=== PATIENT | female | born 1945 | race Caucasian/White ===

== ENCOUNTER 2018-02-26 13:20 | Outpatient (CLI) | payer MEDICARE | END 2018-02-26 13:21 | disposition home or self-care (01) | LOC: BICMAMMO 13:20 | PROVIDERS: ATTEND Internal Medicine | DX: E28.39 Other primary ovarian failure (principal); E78.5 Hyperlipidemia, unspecified; M85.89 Other specified disorders of bone density and structure, multiple sites | CPT/HCPCS: 77080 ==

== ENCOUNTER 2018-08-30 08:24 | Outpatient (CLI) | payer MEDICARE | END 2018-08-30 08:25 | disposition home or self-care (01) | LOC: BICMAMMO 08:24 | PROVIDERS: ATTEND Internal Medicine | DX: Z12.31 Encounter for screening mammogram for malignant neoplasm of breast (principal); R92.1 Mammographic calcification found on diagnostic imaging of breast | CPT/HCPCS: 77063; 77067 ==

== ENCOUNTER 2022-02-24 10:10 | Outpatient (CLI) | payer MEDICARE ==
[2022-02-24 12:03] LABS: #Monocytes 0.3 10x3/uL (0.0-1.1); #Neutrophils 10.6 10x3/uL (1.5-8.4); %Basophils 0.3 % (0.0-2.0); %Eosinophils 0.3 % (0.0-6.0); %Monocytes 2.7 % (0.0-10.0); Hemoglobin 7.8 g/dL (12.0-15.5); Mean Corpuscular HGB CONC 28.6 g/dL (32.0-36.0); Mean Corpuscular Hemoglobin 21.3 pg (27.0-33.0); Mean Corpuscular Volume 74.4 fl (81.6-98.3); Mean Platelet Volume 9.8 fl (7.4-10.4); Platelet Count 493 10x3/uL (150-450); RBC Distribution Width 17.5 % (11.5-14.5); Red Blood Cell (RBC) Count 3.67 10x6/uL (3.90-5.03); White Blood Cell (WBC) Count 12.1 10x3/uL (3.5-10.5)
[2022-02-24 12:27] LABS: Anion Gap 19 mmol/L (10-20); BUN (Urea Nitrogen) 11 mg/dL (9.8-20.1); Calc. Creatinine Clearance 0 mL/min (70-130); Calcium 8.8 mg/dL (7.8-10.44); Carbon Dioxide 21 mmol/L (23-31); Chloride 98 mmol/L (98-107); Estimated GFR 64; Glucose 92 mg/dL (83-110); Potassium 4.1 mmol/L (3.5-5.1); Sodium 134 mmol/L (136-145)
[2022-02-24 12:28] LABS: Anisocytosis SLIGHT = 6-15 cells (100X) (0-5/hpf); Hypochromia SLIGHT = 6-15 cells (100X) (0-5/hpf); Microcytosis SLIGHT = 6-15 cells (100X) (0-5/hpf); Platelet Morphology Comment Appears Increased
[2022-02-24 12:29] LABS: Spherocytes SLIGHT = 1-5 cells (100X) (None Seen)
[2022-02-24 16:51] LABS: Hemoglobin A1c 5.4 % (4.0-6.0)
== END 2022-02-24 10:11 | disposition home or self-care (01) ==
LOC: LABBT 10:10
PROVIDERS: ATTEND Surgery
DX: Z01.818 Encounter for other preprocedural examination (principal); C18.9 Malignant neoplasm of colon, unspecified; Z20.822 Contact with and (suspected) exposure to COVID-19
CPT/HCPCS: 80048; 83036; 85025; 87811; 93005; 93010

== ENCOUNTER 2022-02-28 12:07 | Inpatient (IN) | payer MEDICARE ==
[2022-02-28] MEDS ORDERED: HYDROmorphone 2 MG/ML VIAL ONE (16:04)
[2022-02-28] MEDS ORDERED: fentaNYL Citrate/PF 100 MCG/2 ML SYRINGE ONE (16:04)
[2022-02-28] MEDS ORDERED: Phenylephrine 10 MG/ML VIAL ONE ×2 (16:05→16:19)
[2022-02-28] MEDS ORDERED: Sodium Chloride 0.9% 100 ML ONE (16:12)
[2022-02-28] MEDS ORDERED: cefOXitin 2 GM VIAL ONE (16:12)
[2022-02-28] MEDS ORDERED: Rocuronium Bromide 10 MG/ML (10ML VIAL) ONE (16:19)
[2022-02-28] MEDS ORDERED: PROPOFOL 200 MG/20 ML VIAL ONE (16:19)
[2022-02-28] MEDS ORDERED: Ondansetron PF 4 MG/2 ML Vial ONE (16:19)
[2022-02-28] MEDS ORDERED: Vecuronium 10 MG VIAL ONE (16:19)
[2022-02-28] MEDS ORDERED: Dexamethasone 20 MG/5 ML VIAL ONE (16:19)
[2022-02-28] MEDS ORDERED: SUGAMMADEX SODIUM 200 MG/2 ML VIAL ONE (17:41)
[2022-02-28] MEDS ORDERED: Promethazine HCl 25 MG/ML VIAL IM PRN (18:21)
[2022-02-28] MEDS ORDERED: hydrALAZINE 20 MG/ML VIAL SLOW IVP PRN (18:21)
[2022-02-28] MEDS ORDERED: Loratadine 10 MG TAB PO PRN (18:21)
[2022-02-28] MEDS ORDERED: Fentanyl 100 MCG/2 ML VIAL ONE ×2 (18:34→19:10)
[2022-02-28] MEDS ORDERED: Naloxone HCl 0.4 mg/ml Vial IV PRN (18:45)
[2022-02-28] MEDS ORDERED: Morphine Sulfate 100 MG in Dextrose 5% in Water 98 ML IV SCH (18:45)
[2022-02-28] MEDS ORDERED: Labetalol HCl 100 MG/20 ML VIAL ONE (19:17)
[2022-02-28] MEDS: D5 1/2 NS w/20 mEq KCL 1,000 ML IV SCH (21:51)
[2022-02-28 23:59] VITALS: BMI 18.6
[2022-03-01] MEDS: cefOXitin Sodium 1 GM in Sodium Chloride 0.9% 100 ML IVPB SCH ×2 (01:00→09:46)
[2022-03-01 06:07] LABS: #Lymphocytes 0.7 thou/uL (1.20-3.40); #Monocytes 0.5 thou/uL (0.11-0.59); #Neutrophils 10.6 thou/uL (1.40-6.50); %Basophils 0.1 % (0.0-1.0); %Eosinophils 0.1 % (0.0-10.0); %Lymphocytes 5.9 % (21.0-51.0); %Monocytes 4.1 % (0.0-10.0); %Neutrophils 89.9 % (42.0-75.0); Mean Corpuscular Hemoglobin 25.5 pg (27.0-31.0); Mean Corpuscular Volume 82.3 fL (78.0-98.0); Platelet Count 281 thou/uL (130-400); RBC Distribution Width 16.8 % (11.5-14.5); Red Blood Cell (RBC) Count 3.91 mill/uL (4.20-5.40); White Blood Cell (WBC) Count 11.8 thou/uL (4.8-10.8)
[2022-03-01 06:22] LABS: Anion Gap 15 mmol/L (10-20); BUN (Urea Nitrogen) 15 mg/dL (9.8-20.1); Calc. Creatinine Clearance 28 mL/min (70-130); Carbon Dioxide 22 mmol/L (23-31); Chloride 101 mmol/L (98-107); Estimated GFR 36; Glucose 183 mg/dL (83-110); Potassium 4.3 mmol/L (3.5-5.1); Sodium 134 mmol/L (136-145)
[2022-03-01] MEDS ORDERED: Enoxaparin Sodium 40 MG/0.4 ML SYRINGE SC SCH (09:00)
[2022-03-01] MEDS: D5 1/2 NS w/20 mEq KCL 1,000 ML IV SCH ×3 (09:46→21:49)
[2022-03-01] MEDS: Famotidine 20 MG TAB PO SCH (09:48)
[2022-03-01] MEDS: Famotidine/PF 20 mg/2ml Vial SLOW IVP SCH (09:48)
[2022-03-01] MEDS ORDERED: Fentanyl 20 mcg/ml (100 ml CADD) IV PRN (12:08)
[2022-03-01] MEDS ORDERED: Sodium Chloride 0.9% 1,000 ML IV SCH ×2 (12:15→19:30)
[2022-03-01] MEDS ORDERED: fentaNYL Citrate/PF 2,000 MCG in Sodium Chloride 0.9% 60 ML IV PRN (17:57)
[2022-03-02] MEDS: D5 1/2 NS w/20 mEq KCL 1,000 ML IV SCH ×4 (03:34→23:17)
[2022-03-02 07:28] LABS: Anion Gap 14 mmol/L (10-20); BUN (Urea Nitrogen) 14 mg/dL (9.8-20.1); Calc. Creatinine Clearance 53 mL/min (70-130); Calcium 7.9 mg/dL (7.8-10.44); Carbon Dioxide 15 mmol/L (23-31); Chloride 104 mmol/L (98-107); Estimated GFR 77; Glucose 112 mg/dL (83-110); Potassium 4.9 mmol/L (3.5-5.1); Sodium 129 mmol/L (136-145)
[2022-03-02 07:31] LABS: #Basophils 0.1 thou/uL (0.0-0.2); #Lymphocytes 0.7 thou/uL (1.20-3.40); #Monocytes 0.4 thou/uL (0.11-0.59); #Neutrophils 14.6 thou/uL (1.40-6.50); %Basophils 0.4 % (0.0-1.0); %Eosinophils 0.1 % (0.0-10.0); %Lymphocytes 4.3 % (21.0-51.0); %Monocytes 2.6 % (0.0-10.0); %Neutrophils 92.6 % (42.0-75.0); Hemoglobin 7.6 g/dL (12.0-16.0); Hypochromia SLIGHT = 6-15 cells (100X) (0-5/hpf); MDiff Complete? YES; Mean Corpuscular HGB CONC 29.8 g/dL (32.0-36.0); Mean Corpuscular Hemoglobin 25.5 pg (27.0-31.0); Mean Corpuscular Volume 85.4 fL (78.0-98.0); Mean Platelet Volume 8.8 fL (7.4-10.4); Platelet Count 238 thou/uL (130-400); Platelet Morphology Comment Appears Adequate; Polychromasia SLIGHT = 2-3 cells (100X) (0-2/hpf); RBC Distribution Width 17.2 % (11.5-14.5); Red Blood Cell (RBC) Count 2.98 mill/uL (4.20-5.40); White Blood Cell (WBC) Count 15.7 thou/uL (4.8-10.8)
[2022-03-02] MEDS ORDERED: Enoxaparin Sodium 30 MG/0.3 ML SYRINGE SC SCH (09:00)
[2022-03-02] MEDS ORDERED: Enoxaparin Sodium 40 MG/0.4 ML SYRINGE SC SCH (09:45)
[2022-03-02] MEDS: Famotidine/PF 20 mg/2ml Vial SLOW IVP SCH (09:46)
[2022-03-02] MEDS: Famotidine 20 MG TAB PO SCH (09:47)
[2022-03-02] MEDS: Ondansetron PF 4 MG/2 ML Vial IVP PRN (23:16)
[2022-03-03] MEDS: Ondansetron PF 4 MG/2 ML Vial IVP PRN (04:59)
[2022-03-03 07:41] LABS: Hemoglobin 10.3 g/dL (12.0-16.0); Mean Corpuscular HGB CONC 30.9 g/dL (32.0-36.0); Mean Corpuscular Hemoglobin 26.1 pg (27.0-31.0); Mean Corpuscular Volume 84.2 fL (78.0-98.0); Mean Platelet Volume 8.5 fL (7.4-10.4); Platelet Count 295 thou/uL (130-400); RBC Distribution Width 16.4 % (11.5-14.5); Red Blood Cell (RBC) Count 3.94 mill/uL (4.20-5.40); White Blood Cell (WBC) Count 21.6 thou/uL (4.8-10.8)
[2022-03-03 08:02] LABS: Band 13 % (5-11); Lymphocytes 3 % (21-51); MDiff Complete? YES; Neutrophil 84 % (42-75); Platelet Morphology Comment Appears Adequate; Polychromasia SLIGHT = 2-3 cells (100X) (0-2/hpf)
[2022-03-03] MEDS: Famotidine 20 MG TAB PO SCH (08:52)
[2022-03-03] MEDS: D5 1/2 NS w/20 mEq KCL 1,000 ML IV SCH (08:55)
[2022-03-03] MEDS: Famotidine/PF 20 mg/2ml Vial SLOW IVP SCH (08:56)
[2022-03-03] MEDS: Enoxaparin Sodium 40 MG/0.4 ML SYRINGE SC SCH (08:56)
[2022-03-03] MEDS: metroNIDAZOLE 500 MG in Premix Bag 1 BAG IVPB SCH ×2 (14:37→21:22)
[2022-03-04] MEDS: Ondansetron PF 4 MG/2 ML Vial IVP PRN (00:43)
[2022-03-04] MEDS: Promethazine HCl 12.5 MG in Sodium Chloride 0.9% 50 ML IVPB PRN ×2 (03:09→12:23)
[2022-03-04] MEDS: Enoxaparin Sodium 40 MG/0.4 ML SYRINGE SC SCH (10:05)
[2022-03-04] MEDS: Famotidine/PF 20 mg/2ml Vial SLOW IVP SCH (10:06)
[2022-03-04] MEDS: Famotidine 20 MG TAB PO SCH (10:07)
[2022-03-04] MEDS: D5 1/2 NS w/20 mEq KCL 1,000 ML IV SCH ×2 (10:08→17:04)
[2022-03-04] MEDS: metroNIDAZOLE 500 MG in Premix Bag 1 BAG IVPB SCH ×3 (17:03→22:16)
[2022-03-05] MEDS: D5 1/2 NS w/20 mEq KCL 1,000 ML IV SCH ×2 (03:12→16:54)
[2022-03-05] MEDS: Ondansetron PF 4 MG/2 ML Vial IVP PRN ×2 (04:49→10:33)
[2022-03-05 06:04] LABS: #Lymphocytes 0.7 thou/uL (1.20-3.40); #Monocytes 0.5 thou/uL (0.11-0.59); #Neutrophils 9.6 thou/uL (1.40-6.50); %Basophils 0.3 % (0.0-1.0); %Eosinophils 0.3 % (0.0-10.0); %Lymphocytes 6.1 % (21.0-51.0); %Monocytes 4.5 % (0.0-10.0); %Neutrophils 88.8 % (42.0-75.0); Hemoglobin 9.1 g/dL (12.0-16.0); Mean Corpuscular HGB CONC 30.9 g/dL (32.0-36.0); Mean Corpuscular Hemoglobin 26.4 pg (27.0-31.0); Mean Corpuscular Volume 85.3 fL (78.0-98.0); Mean Platelet Volume 8.7 fL (7.4-10.4); Platelet Count 274 thou/uL (130-400); RBC Distribution Width 16.9 % (11.5-14.5); Red Blood Cell (RBC) Count 3.45 mill/uL (4.20-5.40); White Blood Cell (WBC) Count 10.8 thou/uL (4.8-10.8)
[2022-03-05] MEDS: metroNIDAZOLE 500 MG in Premix Bag 1 BAG IVPB SCH ×3 (06:22→22:06)
[2022-03-05 06:25] LABS: ALT (SGPT) 14 U/L (8-55); AST (SGOT) 24 U/L (5-34); Albumin 2.3 g/dL (3.4-4.8); Alkaline Phosphatase 220 U/L (40-110); Anion Gap 13 mmol/L (10-20); BUN (Urea Nitrogen) 6 mg/dL (9.8-20.1); Bilirubin, Total 0.6 mg/dL (0.2-1.2); Calc. Creatinine Clearance 58 mL/min (70-130); Calcium 8.6 mg/dL (7.8-10.44); Carbon Dioxide 21 mmol/L (23-31); Chloride 101 mmol/L (98-107); Estimated GFR 86; Globulin 2.8 g/dL (2.4-3.5); Glucose 106 mg/dL (83-110); Magnesium 1.4 mg/dL (1.6-2.6); Phosphorus 3.2 mg/dL (2.3-4.7); Potassium 4.3 mmol/L (3.5-5.1); Protein, Total 5.1 g/dL (5.8-8.1); Sodium 131 mmol/L (136-145)
[2022-03-05] MEDS: Famotidine/PF 20 mg/2ml Vial SLOW IVP SCH (08:38)
[2022-03-05] MEDS: Enoxaparin Sodium 40 MG/0.4 ML SYRINGE SC SCH (08:38)
[2022-03-05] MEDS: Famotidine 20 MG TAB PO SCH (08:39)
[2022-03-05] MEDS ORDERED: Amino Acids 4.25 %/Dextrose 5% 1,000 ML IV SCH (14:00)
[2022-03-06] MEDS: D5 1/2 NS w/20 mEq KCL 1,000 ML IV SCH ×2 (04:03→17:52)
[2022-03-06] MEDS: D5W-AA 4.25% with LYTES 1,000 ML IV SCH ×2 (04:07→16:54)
[2022-03-06] MEDS: metroNIDAZOLE 500 MG in Premix Bag 1 BAG IVPB SCH ×3 (05:35→22:25)
[2022-03-06] MEDS: Enoxaparin Sodium 40 MG/0.4 ML SYRINGE SC SCH (08:57)
[2022-03-06] MEDS: Famotidine 20 MG TAB PO SCH (08:58)
[2022-03-06] MEDS: Ondansetron PF 4 MG/2 ML Vial IVP PRN ×2 (08:58→20:52)
[2022-03-06] MEDS: Famotidine/PF 20 mg/2ml Vial SLOW IVP SCH (08:58)
[2022-03-06] MEDS ORDERED: Amino Acids 4.25 %/Dextrose 5% 2,000 ML BAG IV SCH (09:00)
[2022-03-06] MEDS ORDERED: Fentanyl 100 MCG/2 ML VIAL SLOW IVP PRN (13:33)
[2022-03-06] MEDS: HYDROcodone/Acetaminophen 7.5/325 mg Tablet PO PRN (18:46)
[2022-03-07] MEDS: metroNIDAZOLE 500 MG in Premix Bag 1 BAG IVPB SCH ×2 (05:24→13:16)
[2022-03-07] MEDS: D5W-AA 4.25% with LYTES 1,000 ML IV SCH ×2 (06:45→23:10)
[2022-03-07] MEDS: D5 1/2 NS w/20 mEq KCL 1,000 ML IV SCH (08:27)
[2022-03-07] MEDS: Famotidine/PF 20 mg/2ml Vial SLOW IVP SCH (08:28)
[2022-03-07] MEDS: Enoxaparin Sodium 40 MG/0.4 ML SYRINGE SC SCH (08:28)
[2022-03-07] MEDS: Famotidine 20 MG TAB PO SCH (08:28)
[2022-03-07] MEDS: Ondansetron PF 4 MG/2 ML Vial IVP PRN ×2 (09:57→16:15)
[2022-03-07] MEDS: HYDROcodone/Acetaminophen 7.5/325 mg Tablet PO PRN (17:46)
[2022-03-07] MEDS: Diphenoxylate HCl/Atropine Tablet PO SCH (21:03)
[2022-03-08] MEDS: HYDROcodone/Acetaminophen 7.5/325 mg Tablet PO PRN ×3 (00:07→16:03)
[2022-03-08] MEDS: Enoxaparin Sodium 40 MG/0.4 ML SYRINGE SC SCH (08:56)
[2022-03-08] MEDS: Diphenoxylate HCl/Atropine Tablet PO SCH ×2 (08:56→20:12)
[2022-03-08] MEDS: Famotidine 20 MG TAB PO SCH (08:56)
[2022-03-08] MEDS: Famotidine/PF 20 mg/2ml Vial SLOW IVP SCH (08:56)
[2022-03-08] MEDS: D5W-AA 4.25% with LYTES 1,000 ML IV SCH (13:34)
[2022-03-08] MEDS: Ondansetron PF 4 MG/2 ML Vial IVP PRN (13:34)
[2022-03-08] MEDS: Mag-Al 1200 mg/1200 mg/30 ML UDCUP PO PRN (20:10)
[2022-03-09] MEDS: HYDROcodone/Acetaminophen 7.5/325 mg Tablet PO PRN ×2 (00:21→18:51)
[2022-03-09] MEDS: Ondansetron PF 4 MG/2 ML Vial IVP PRN ×2 (00:21→09:41)
[2022-03-09] MEDS: Mag-Al 1200 mg/1200 mg/30 ML UDCUP PO PRN ×2 (03:21→20:12)
[2022-03-09] MEDS: Enoxaparin Sodium 40 MG/0.4 ML SYRINGE SC SCH (09:40)
[2022-03-09] MEDS: Diphenoxylate HCl/Atropine Tablet PO SCH ×2 (09:40→20:12)
[2022-03-09] MEDS: Famotidine 20 MG TAB PO SCH (09:41)
[2022-03-09] MEDS: Famotidine/PF 20 mg/2ml Vial SLOW IVP SCH (09:41)
[2022-03-10] MEDS: Mag-Al 1200 mg/1200 mg/30 ML UDCUP PO PRN ×2 (09:30→12:56)
[2022-03-10] MEDS: Famotidine/PF 20 mg/2ml Vial SLOW IVP SCH ×2 (09:31→12:58)
[2022-03-10] MEDS: Enoxaparin Sodium 40 MG/0.4 ML SYRINGE SC SCH (09:31)
[2022-03-10] MEDS: Ondansetron PF 4 MG/2 ML Vial IVP PRN (10:36)
[2022-03-10] MEDS: Famotidine 20 MG TAB PO SCH (12:55)
[2022-03-10] MEDS: Diphenoxylate HCl/Atropine Tablet PO SCH ×2 (12:57→22:22)
[2022-03-10] MEDS: HYDROcodone/Acetaminophen 7.5/325 mg Tablet PO PRN (17:25)
[2022-03-11] MEDS: Enoxaparin Sodium 40 MG/0.4 ML SYRINGE SC SCH (10:38)
[2022-03-11] MEDS: Mag-Al 1200 mg/1200 mg/30 ML UDCUP PO PRN (10:38)
[2022-03-11] MEDS: Famotidine 20 MG TAB PO SCH (10:39)
[2022-03-11] MEDS: Diphenoxylate HCl/Atropine Tablet PO SCH (10:42)
[2022-03-11] MEDS: HYDROcodone/Acetaminophen 7.5/325 mg Tablet PO PRN (16:16)
[2022-03-11] MEDS: Ondansetron PF 4 MG/2 ML Vial IVP PRN (17:00)
[2022-03-11 17:06] VITALS: BP 107/68; TEMP 97.9
== END 2022-03-11 17:00 | DRG 330 ==
LOC: SURG A 12:07
PROVIDERS: ADMIT Surgery; ATTEND Surgery
PROC: 0DBG0ZZ Excision of Left Large Intestine, Open Approach (ICD-10-PCS; principal; 2022-02-28)
PROC: 0D1B0Z4 Bypass Ileum to Cutaneous, Open Approach (ICD-10-PCS; 2022-02-28)
PROC: 30233N1 Transfusion of Nonautologous Red Blood Cells into Peripheral Vein, Percutaneous Approach (ICD-10-PCS; 2022-02-28)
PROC: 3E0336Z Introduction of Nutritional Substance into Peripheral Vein, Percutaneous Approach (ICD-10-PCS; 2022-02-28)
DX: C18.7 Malignant neoplasm of sigmoid colon (principal); C79.2 Secondary malignant neoplasm of skin; K56.7 Ileus, unspecified; Z20.822 Contact with and (suspected) exposure to COVID-19; I10 Essential (primary) hypertension; F41.9 Anxiety disorder, unspecified; F32.A Depression, unspecified; K21.9 Gastro-esophageal reflux disease without esophagitis; E78.5 Hyperlipidemia, unspecified; Z79.899 Other long term (current) drug therapy; Z90.49 Acquired absence of other specified parts of digestive tract; Z88.0 Allergy status to penicillin
CPT/HCPCS: 36415; 36416; 36430; 80048; 80053; 83735; 84100; 84134; 85025; 86850; 86900; 86901; 88309; 97139; A4649; C1713; C1776; J0694; J1100; J1170; J1650; J1956; J2370; J2405; J2550; J2704; J3010; J3480; J3490; J7050; P9016; S0028

== ENCOUNTER 2022-03-15 21:42 | Inpatient (IN) | payer MEDICARE ==
[2022-03-16] MEDS ORDERED: Ondansetron PF 4 MG/2 ML Vial IVP PRN (02:00)
[2022-03-16] MEDS ORDERED: Sodium Chloride 0.9% 1,000 ML IV SCH (02:00)
[2022-03-16] MEDS ORDERED: Ondansetron ODT 4 MG TAB SL PRN (02:00)
[2022-03-16] MEDS ORDERED: Acetaminophen 325 MG TAB PO PRN (02:00)
[2022-03-16] MEDS ORDERED: Morphine 2 MG/ML VIAL SLOW IVP PRN ×2 (02:35)
[2022-03-16 04:02] VITALS: BMI 16.5
[2022-03-16 06:24] LABS: #Basophils 0.1 thou/uL (0.0-0.2); #Eosinphils 0.1 thou/uL (0.0-0.7); #Lymphocytes 1.1 thou/uL (1.20-3.40); #Monocytes 0.6 thou/uL (0.11-0.59); #Neutrophils 7.3 thou/uL (1.40-6.50); %Basophils 0.7 % (0.0-1.0); %Lymphocytes 11.8 % (21.0-51.0); %Monocytes 6.1 % (0.0-10.0); %Neutrophils 80.5 % (42.0-75.0); Hemoglobin 10.1 g/dL (12.0-16.0); Mean Corpuscular HGB CONC 31.2 g/dL (32.0-36.0); Mean Corpuscular Hemoglobin 25.8 pg (27.0-31.0); Mean Corpuscular Volume 82.7 fL (78.0-98.0); Mean Platelet Volume 8.5 fL (7.4-10.4); Platelet Count 361 thou/uL (130-400); RBC Distribution Width 17.8 % (11.5-14.5)
[2022-03-16 06:49] LABS: ALT (SGPT) 10 U/L (8-55); AST (SGOT) 21 U/L (5-34); Alkaline Phosphatase 179 U/L (40-110); Anion Gap 15 mmol/L (10-20); BUN (Urea Nitrogen) 23 mg/dL (9.8-20.1); Bilirubin, Total 0.4 mg/dL (0.2-1.2); Calc. Creatinine Clearance 27 mL/min (70-130); Calcium 8.6 mg/dL (7.8-10.44); Carbon Dioxide 25 mmol/L (23-31); Chloride 94 mmol/L (98-107); Estimated GFR 41; Globulin 3.1 g/dL (2.4-3.5); Glucose 102 mg/dL (83-110); Lipase 231 U/L (8-78); Potassium 3.9 mmol/L (3.5-5.1); Protein, Total 6.1 g/dL (5.8-8.1); Sodium 130 mmol/L (136-145)
[2022-03-16] MEDS: Pantoprazole 40 MG VIAL IVP SCH (08:09)
[2022-03-16] MEDS: Acetaminophen 325 MG TAB PO PRN (16:31)
[2022-03-17] MEDS: Pantoprazole 40 MG VIAL IVP SCH (08:48)
[2022-03-17 08:55] LABS: Anion Gap 11 mmol/L (10-20); BUN (Urea Nitrogen) 19 mg/dL (9.8-20.1); Calc. Creatinine Clearance 34 mL/min (70-130); Calcium 8.6 mg/dL (7.8-10.44); Carbon Dioxide 24 mmol/L (23-31); Chloride 101 mmol/L (98-107); Estimated GFR 53; Glucose 90 mg/dL (83-110); Potassium 4.4 mmol/L (3.5-5.1); Sodium 132 mmol/L (136-145)
[2022-03-17] MEDS: Acetaminophen 325 MG TAB PO PRN ×2 (09:04→20:37)
[2022-03-18 08:53] VITALS: BP 97/60; TEMP 97.8
[2022-03-18] MEDS: Pantoprazole 40 MG VIAL IVP SCH (09:02)
== END 2022-03-18 18:04 | disposition home health service (06) | DRG 689 ==
LOC: T4-B 21:42 → OBSVTOIN 03-16 16:08
PROVIDERS: ADMIT Internal Medicine; ATTEND Internal Medicine
PROC: 0DH67UZ Insertion of Feeding Device into Stomach, Via Natural or Artificial Opening (ICD-10-PCS; principal; 2022-03-17)
PROC: 3E0G76Z Introduction of Nutritional Substance into Upper GI, Via Natural or Artificial Opening (ICD-10-PCS; 2022-03-17)
DX: N39.0 Urinary tract infection, site not specified (principal); E43 Unspecified severe protein-calorie malnutrition; N17.9 Acute kidney failure, unspecified; E87.1 Hypo-osmolality and hyponatremia; Z68.1 Body mass index [BMI] 19.9 or less, adult; G89.18 Other acute postprocedural pain; Z20.822 Contact with and (suspected) exposure to COVID-19; E78.5 Hyperlipidemia, unspecified; F32.A Depression, unspecified; F41.9 Anxiety disorder, unspecified; E86.0 Dehydration; R62.7 Adult failure to thrive; R31.9 Hematuria, unspecified; Z90.49 Acquired absence of other specified parts of digestive tract; Z93.2 Ileostomy status; Z28.21 Immunization not carried out because of patient refusal; Z88.0 Allergy status to penicillin; Z91.018 Allergy to other foods; Z79.899 Other long term (current) drug therapy; Z90.5 Acquired absence of kidney; Z85.038 Personal history of other malignant neoplasm of large intestine; Z85.528 Personal history of other malignant neoplasm of kidney; Z82.49 Family history of ischemic heart disease and other diseases of the circulatory system; Z83.511 Family history of glaucoma; Z83.49 Family history of other endocrine, nutritional and metabolic diseases
CPT/HCPCS: 36415; 80048; 80053; 83690; 83930; 83935; 84300; 85025; 87040; 87086; 96374; 97139; C9113; G0378; J1956; J7050; U0003; U0005

== ENCOUNTER 2022-12-19 11:45 | Outpatient (CLI) | payer MEDICARE | END 2022-12-19 11:46 | disposition home or self-care (01) | LOC: PET 11:45 | PROVIDERS: ATTEND Internal Medicine Hematology & Oncology | DX: C18.7 Malignant neoplasm of sigmoid colon (principal) | CPT/HCPCS: 78815; A9552 ==